=== PATIENT | female | born 1985 | race Caucasian/White ===

== ENCOUNTER 2018-12-07 11:49 | Emergency (ER) | payer SELFPAY ==
[~2018-12-07] VITALS: Ht 167.6 cm; Wt 106.6 kg
[2018-12-07] MEDS ORDERED: CLON.1 PO (12:25)
[2018-12-07] MEDS ORDERED: Catapres0.3 MG PO (13:10)
== END 2018-12-07 13:21 | disposition home or self-care (01) ==
LOC: ER 11:49
DX: F15.93 Other stimulant use, unspecified with withdrawal (principal); F41.9 Anxiety disorder, unspecified; R00.2 Palpitations; R11.2 Nausea with vomiting, unspecified; Z88.5 Allergy status to narcotic agent; Z79.899 Other long term (current) drug therapy
CPT/HCPCS: 99283